=== PATIENT | male | born 1985 | race Caucasian/White ===

== ENCOUNTER 2020-11-29 15:07 | Emergency (ER) | payer OTHER ==
[~2020-11-29] VITALS: Ht 172.7 cm; Wt 81.6 kg
[2020-11-29] MEDS ORDERED: SODIUM CHLORIDE 0.9% 50ML 50 ML ONE (15:55)
[2020-11-29] MEDS ORDERED: IOPAMIDOL 370 MG/ML 200 ML INFUS..BTL INJ ONE (15:56)
== END 2020-11-29 18:30 | disposition home or self-care (01) ==
LOC: FSED 15:17
DX: K62.89 Other specified diseases of anus and rectum (principal)
CPT/HCPCS: 74176; 74177; 80053; 85025; 99283; Q9967